=== PATIENT | male | born 1980 | race Two or more races ===

== ENCOUNTER 2019-04-30 11:35 | Inpatient (IN) | payer MEDICARE ==
[~2019-04-30] VITALS: Ht 180.3 cm; Wt 97.5 kg
[2019-04-30 12:11] LABS: BASOPHILS % (AUTO) 0.5 % (0.0-2.0); EOSINOPHILS % (AUTO) 1.6 % (1.0-6.0); HEMATOCRIT 45.2 % (41-53); HEMOGLOBIN 15.2 g/dL (13.5-17.5); LYMPHOCYTES # (AUTO) 2.1 K/uL (1.0-4.8); LYMPHOCYTES % (AUTO) 32.9 % (22.0-44.0); MEAN CORPUSCULAR HEMOGLOBIN 28.8 pg (26.0-34.0); MEAN CORPUSCULAR HGB CONC 33.7 G/dL (31.0-37.0); MEAN CORPUSCULAR VOLUME 85 fL (80-100); MONOCYTES # (AUTO) 0.4 K/uL (0.1-1.0); MONOCYTES % (AUTO) 5.7 % (2.0-9.0); NEUTROPHILS # (AUTO) 3.8 K/uL (1.8-7.7); NEUTROPHILS % (AUTO) 59.3 % (40.0-70.0); PLATELET COUNT (AUTO) 200 K/uL (150-450); RED BLOOD CELL COUNT(AUTO) 5.29 MIL/uL (4.50-5.90); RED CELL DISTRIBUTION WIDTH 13.1 % (11.5-14.5)
[2019-04-30 12:20] LABS: ANION GAP 10 mmol/L (8-16); CARBON DIOXIDE 26 mmol/L (22-29); CHLORIDE 98 mmol/L (98-107); CREATININE 0.94 mg/dL (0.60-1.30); GLOMERULAR FILTR. RATE CALC > 60 mL/min (>60); GLUCOSE,RANDOM 312 mg/dL (70-110); POTASSIUM 4.2 mmol/L (3.5-5.1); SODIUM SERUM 134 mmol/L (136-145); UREA NITROGEN, BLOOD 14 mg/dL (7-18)
[2019-04-30 12:26] LABS: ALANINE AMINOTRANSFERASE 52 U/L (12-78); ALBUMIN 3.8 g/dL (3.4-5.0); ALKALINE PHOSPHATASE 100 U/L (46-116); ASPARTATE AMINOTRANSFERASE 28 U/L (15-37); BILIRUBIN,TOTAL 0.8 mg/dL (0.1-1.0); TOTAL PROTEIN, SERUM 8.1 g/dL (6.4-8.2)
[2019-04-30 12:39] LABS: GLUCOSE,POINT OF CARE 341 MG/DL (70-110)
[2019-04-30] MEDS ORDERED: METF-960 PO (13:06)
[2019-04-30] MEDS ORDERED: BICT1TAB PO (13:06)
[2019-04-30] MEDS ORDERED: AMIT10TA6 PO (13:06)
[2019-04-30] MEDS ORDERED: SITA25 PO (13:06)
[2019-04-30] MEDS ORDERED: INSLAN SQ (13:06)
[2019-04-30] MEDS ORDERED: KETOROLAC TROMETHAMINE 30 MG/ML VIAL IM ONE (13:30)
[2019-04-30] MEDS ORDERED: ACETAMINOPHEN 500 MG TABLET PO ONE (13:30)
[2019-04-30 16:14] LABS: GLUCOSE,POINT OF CARE 241 MG/DL (70-110)
[2019-04-30 18:59] LABS: GLUCOSE,POINT OF CARE 292 MG/DL (70-110)
[2019-04-30] MEDS ORDERED: LORazepam 2 MG TABLET PO PRN (21:45)
[2019-04-30] MEDS ORDERED: HALOPERIDOL 5 MG TABLET PO PRN (21:45)
[2019-05-01 00:31] VITALS: BP 126/80
[2019-05-01] MEDS: ZOLPIDEM TARTRATE 10 MG TABLET PO PRN (00:43)
[2019-05-01] MEDS ORDERED: PNEUMOCOCCAL VACCINE POLYVALENT 0.5 ML VIAL [PPSV23] IM ONE (01:00)
[2019-05-01 01:24] LABS: GLUCOMETER DEV NAME(LOC) BV2S.; GLUCOSE,POINT OF CARE 256 MG/DL (70-110)
[2019-05-01 07:16] LABS: CHOL/HDL RATIO 4.4 (4.2-7.3)
[2019-05-01] MEDS ORDERED: CloNIDine HCL 0.1 MG TABLET PO PRN (10:30)
[2019-05-01] MEDS ORDERED: LOPERAMIDE HCL 2 MG CAPSULE PO PRN (10:30)
[2019-05-01] MEDS ORDERED: ALBUTEROL SULFATE HFA 90 MCG/PUFF 8 GM INHALER IH PRN (10:30)
[2019-05-01] MEDS ORDERED: MAG HYDROX/AL HYDROX/SIMETH ES 30 ML SUSPENSION UDCUP PO PRN (10:30)
[2019-05-01] MEDS ORDERED: BENZOCAINE/MENTHOL LOZENGE MM PRN (10:30)
[2019-05-01] MEDS ORDERED: ACETAMINOPHEN 325 MG TABLET PO PRN (10:30)
[2019-05-01] MEDS ORDERED: BACITRACIN 28.4 GM OINTMENT TP PRN (10:30)
[2019-05-01] MEDS ORDERED: PETROLATUM,WHITE 28 GM JELLY TP PRN (10:30)
[2019-05-01] MEDS ORDERED: MAGNESIUM HYDROXIDE SUSPENSION 30 ML UDCUP PO PRN (10:30)
[2019-05-01] MEDS ORDERED: GLUCAGON,HUMAN RECOMBINANT 1 MG VIAL IM PRN (10:30)
[2019-05-01 11:27] VITALS: BP 131/71
[2019-05-01] MEDS: ESCITALOPRAM OXALATE 10 MG TABLET PO SCH (11:48)
[2019-05-01] MEDS: INSULIN LISPRO 100 UNITS/ML SQ PRN ×2 (16:25→20:51)
[2019-05-01 16:27] VITALS: BP 120/68
[2019-05-01 16:30] LABS: GLUCOMETER DEV NAME(LOC) BV2S.; GLUCOSE,POINT OF CARE 207 MG/DL (70-110)
[2019-05-01] MEDS: INSULIN GLARGINE,HUM.REC.ANLOG 100 UNITS/ML SQ SCH (20:50)
[2019-05-01 20:53] LABS: GLUCOMETER DEV NAME(LOC) BV2S.; GLUCOSE,POINT OF CARE 235 MG/DL (70-110)
[2019-05-02 06:07] VITALS: BP 118/70
[2019-05-02 06:19] LABS: GLUCOMETER DEV NAME(LOC) BV2S.; GLUCOSE,POINT OF CARE 211 MG/DL (70-110)
[2019-05-02] MEDS: MetFORMIN HCL 500 MG TABLET PO SCH (06:49)
[2019-05-02] MEDS: INSULIN LISPRO 100 UNITS/ML SQ PRN ×4 (06:50→20:40)
[2019-05-02 08:14] VITALS: BP 132/84
[2019-05-02] MEDS: BIKTARVY PO SCH (08:40)
[2019-05-02] MEDS: DOCUSATE SODIUM 100 MG CAPSULE PO SCH (08:40)
[2019-05-02] MEDS: SitaGLIPtin PHOSPHATE 25 MG TABLET PO SCH (08:40)
[2019-05-02] MEDS: OMEPRAZOLE 20 MG CAPSULE PO SCH (08:40)
[2019-05-02] MEDS: ESCITALOPRAM OXALATE 10 MG TABLET PO SCH (08:40)
[2019-05-02] MEDS ORDERED: *PATIENT'S OWN MED [ENTER DRUG, DOSE, FREQUENCY IN COMMENTS] CLINICAL SCH (09:00)
[2019-05-02 11:29] LABS: GLUCOMETER DEV NAME(LOC) BV2S.; GLUCOSE,POINT OF CARE 195 MG/DL (70-110)
[2019-05-02 16:08] VITALS: BP 125/73
[2019-05-02 16:24] LABS: GLUCOMETER DEV NAME(LOC) BV2S.; GLUCOSE,POINT OF CARE 160 MG/DL (70-110)
[2019-05-02 20:39] LABS: GLUCOMETER DEV NAME(LOC) BV2S.; GLUCOSE,POINT OF CARE 180 MG/DL (70-110)
[2019-05-02] MEDS: INSULIN GLARGINE,HUM.REC.ANLOG 100 UNITS/ML SQ SCH (20:41)
[2019-05-03] MEDS: INSULIN LISPRO 100 UNITS/ML SQ PRN ×4 (06:22→20:37)
[2019-05-03 06:24] LABS: GLUCOMETER DEV NAME(LOC) BV2S.; GLUCOSE,POINT OF CARE 149 MG/DL (70-110)
[2019-05-03 06:38] VITALS: BP 120/81
[2019-05-03] MEDS: MetFORMIN HCL 500 MG TABLET PO SCH (06:50)
[2019-05-03 08:07] VITALS: BP 132/86
[2019-05-03] MEDS: OMEPRAZOLE 20 MG CAPSULE PO SCH (09:11)
[2019-05-03] MEDS: DOCUSATE SODIUM 100 MG CAPSULE PO SCH (09:11)
[2019-05-03] MEDS: ESCITALOPRAM OXALATE 10 MG TABLET PO SCH (09:11)
[2019-05-03] MEDS: SitaGLIPtin PHOSPHATE 25 MG TABLET PO SCH (09:12)
[2019-05-03] MEDS: BIKTARVY PO SCH (09:13)
[2019-05-03 09:25] LABS: GLUCOMETER DEV NAME(LOC) BV2S.; GLUCOSE,POINT OF CARE 190 MG/DL (70-110)
[2019-05-03 15:49] LABS: GLUCOMETER DEV NAME(LOC) BV2S.; GLUCOSE,POINT OF CARE 193 MG/DL (70-110)
[2019-05-03 16:25] VITALS: BP 130/71
[2019-05-03 20:34] LABS: GLUCOMETER DEV NAME(LOC) BV2S.; GLUCOSE,POINT OF CARE 228 MG/DL (70-110)
[2019-05-03] MEDS: INSULIN GLARGINE,HUM.REC.ANLOG 100 UNITS/ML SQ SCH (20:38)
[2019-05-04 01:32] VITALS: BP 121/68
[2019-05-04 06:19] LABS: GLUCOMETER DEV NAME(LOC) BV2S.; GLUCOSE,POINT OF CARE 142 MG/DL (70-110)
[2019-05-04] MEDS: MetFORMIN HCL 500 MG TABLET PO SCH (06:40)
[2019-05-04] MEDS: INSULIN LISPRO 100 UNITS/ML SQ PRN ×3 (06:42→20:10)
[2019-05-04] MEDS: OMEPRAZOLE 20 MG CAPSULE PO SCH (08:29)
[2019-05-04] MEDS: ESCITALOPRAM OXALATE 10 MG TABLET PO SCH (08:29)
[2019-05-04] MEDS: SitaGLIPtin PHOSPHATE 25 MG TABLET PO SCH (08:29)
[2019-05-04] MEDS: DOCUSATE SODIUM 100 MG CAPSULE PO SCH (08:29)
[2019-05-04] MEDS: BIKTARVY PO SCH (08:30)
[2019-05-04 10:59] LABS: GLUCOMETER DEV NAME(LOC) BV2S.; GLUCOSE,POINT OF CARE 135 MG/DL (70-110)
[2019-05-04 16:16] VITALS: BP 124/68
[2019-05-04 16:45] LABS: GLUCOMETER DEV NAME(LOC) BV2S.; GLUCOSE,POINT OF CARE 157 MG/DL (70-110)
[2019-05-04] MEDS: IBUPROFEN 600 MG TABLET PO PRN (17:24)
[2019-05-04] MEDS: INSULIN GLARGINE,HUM.REC.ANLOG 100 UNITS/ML SQ SCH (20:11)
[2019-05-04 20:19] LABS: GLUCOMETER DEV NAME(LOC) BV2S.; GLUCOSE,POINT OF CARE 183 MG/DL (70-110)
[2019-05-05 06:20] VITALS: BP 130/88
[2019-05-05 06:25] LABS: GLUCOMETER DEV NAME(LOC) BV2S.; GLUCOSE,POINT OF CARE 197 MG/DL (70-110)
[2019-05-05] MEDS: MetFORMIN HCL 500 MG TABLET PO SCH (06:31)
[2019-05-05] MEDS: INSULIN LISPRO 100 UNITS/ML SQ PRN ×3 (06:34→20:08)
[2019-05-05 08:10] VITALS: BP 120/75
[2019-05-05] MEDS: OMEPRAZOLE 20 MG CAPSULE PO SCH (08:23)
[2019-05-05] MEDS: SitaGLIPtin PHOSPHATE 25 MG TABLET PO SCH (08:23)
[2019-05-05] MEDS: ESCITALOPRAM OXALATE 10 MG TABLET PO SCH (08:23)
[2019-05-05] MEDS: DOCUSATE SODIUM 100 MG CAPSULE PO SCH (08:23)
[2019-05-05] MEDS: BIKTARVY PO SCH (08:24)
[2019-05-05 08:31] LABS: HEMATOCRIT 43.6 % (41-53); HEMOGLOBIN 14.6 g/dL (13.5-17.5); MEAN CORPUSCULAR HEMOGLOBIN 28.7 pg (26.0-34.0); MEAN CORPUSCULAR HGB CONC 33.6 G/dL (31.0-37.0); MEAN CORPUSCULAR VOLUME 85 fL (80-100); PLATELET COUNT (AUTO) 186 K/uL (150-450); RED BLOOD CELL COUNT(AUTO) 5.11 MIL/uL (4.50-5.90)
[2019-05-05 08:39] LABS: ANION GAP 5 mmol/L (8-16); CALCIUM, TOTAL 8.9 mg/dL (8.8-10.5); CARBON DIOXIDE 30 mmol/L (22-29); CHLORIDE 101 mmol/L (98-107); CREATININE 0.88 mg/dL (0.60-1.30); GLOMERULAR FILTR. RATE CALC > 60 mL/min (>60); GLUCOSE,RANDOM 169 mg/dL (70-110); POTASSIUM 4.4 mmol/L (3.5-5.1); SODIUM SERUM 136 mmol/L (136-145); UREA NITROGEN, BLOOD 15 mg/dL (7-18)
[2019-05-05 09:21] LABS: HEMOGLOBIN A1C 8.2 % (4.5-6.2)
[2019-05-05 09:28] LABS: BAND NEUTROPHILS % (MANUAL) 2 % (0-5); LYMPHOCYTES % (MANUAL) 28 % (22-44); MONOCYTES % (MANUAL) 5 % (2-9); PROMYELOCYTES % 4 (0-0); SEGMENTED NEUTROPHILS % 61 % (40-70)
[2019-05-05] MEDS: ONDANSETRON HCL 4 MG TABLET PO PRN (15:01)
[2019-05-05 16:06] VITALS: BP 109/70
[2019-05-05 16:39] LABS: GLUCOMETER DEV NAME(LOC) BV2S.; GLUCOSE,POINT OF CARE 139 MG/DL (70-110)
[2019-05-05] MEDS ORDERED: SUMAtriptan SUCCINATE 25 MG TABLET PO ONE (19:15)
[2019-05-05] MEDS: INSULIN GLARGINE,HUM.REC.ANLOG 100 UNITS/ML SQ SCH (20:08)
[2019-05-05 20:44] LABS: GLUCOMETER DEV NAME(LOC) BV2S.; GLUCOSE,POINT OF CARE 216 MG/DL (70-110)
[2019-05-05] MEDS: ZOLPIDEM TARTRATE 10 MG TABLET PO PRN (21:30)
[2019-05-06] MEDS: ONDANSETRON HCL 4 MG TABLET PO PRN (05:41)
[2019-05-06 06:10] LABS: GLUCOMETER DEV NAME(LOC) BV2S.; GLUCOSE,POINT OF CARE 113 MG/DL (70-110)
[2019-05-06 06:22] VITALS: BP 122/77
[2019-05-06] MEDS: MetFORMIN HCL 500 MG TABLET PO SCH (06:42)
[2019-05-06 08:04] VITALS: BP 120/77
[2019-05-06] MEDS: ESCITALOPRAM OXALATE 10 MG TABLET PO SCH (08:11)
[2019-05-06] MEDS: OMEPRAZOLE 20 MG CAPSULE PO SCH (08:11)
[2019-05-06] MEDS: SitaGLIPtin PHOSPHATE 25 MG TABLET PO SCH (08:11)
[2019-05-06] MEDS: DOCUSATE SODIUM 100 MG CAPSULE PO SCH (08:11)
[2019-05-06] MEDS: BIKTARVY PO SCH (08:11)
[2019-05-06 10:59] LABS: GLUCOMETER DEV NAME(LOC) BV2S.; GLUCOSE,POINT OF CARE 108 MG/DL (70-110)
[2019-05-06 16:39] LABS: GLUCOMETER DEV NAME(LOC) BV2S.; GLUCOSE,POINT OF CARE 115 MG/DL (70-110)
[2019-05-06 17:51] VITALS: BP 135/83
[2019-05-06] MEDS: INSULIN GLARGINE,HUM.REC.ANLOG 100 UNITS/ML SQ SCH (20:07)
[2019-05-06] MEDS: INSULIN LISPRO 100 UNITS/ML SQ PRN (20:08)
[2019-05-06 20:35] VITALS: BP 128/78
[2019-05-06] MEDS: IBUPROFEN 600 MG TABLET PO PRN (20:35)
[2019-05-06] MEDS: ZOLPIDEM TARTRATE 10 MG TABLET PO PRN (20:35)
[2019-05-06 20:59] LABS: GLUCOMETER DEV NAME(LOC) BV2S.; GLUCOSE,POINT OF CARE 150 MG/DL (70-110)
[2019-05-07 00:15] VITALS: BP 128/72
[2019-05-07 06:14] LABS: GLUCOMETER DEV NAME(LOC) BV2S.; GLUCOSE,POINT OF CARE 152 MG/DL (70-110)
[2019-05-07] MEDS: MetFORMIN HCL 500 MG TABLET PO SCH (06:14)
[2019-05-07] MEDS: INSULIN LISPRO 100 UNITS/ML SQ PRN ×2 (06:37→16:43)
[2019-05-07] MEDS: SitaGLIPtin PHOSPHATE 25 MG TABLET PO SCH (08:06)
[2019-05-07] MEDS: DOCUSATE SODIUM 100 MG CAPSULE PO SCH (08:06)
[2019-05-07] MEDS: BIKTARVY PO SCH (08:07)
[2019-05-07] MEDS: OMEPRAZOLE 20 MG CAPSULE PO SCH (08:07)
[2019-05-07] MEDS: ESCITALOPRAM OXALATE 10 MG TABLET PO SCH (08:07)
[2019-05-07 08:15] VITALS: BP 120/79
[2019-05-07] MEDS: IBUPROFEN 600 MG TABLET PO PRN (09:50)
[2019-05-07 11:14] LABS: GLUCOMETER DEV NAME(LOC) BV2S.; GLUCOSE,POINT OF CARE 119 MG/DL (70-110)
[2019-05-07] MEDS ORDERED: ESCI10TA54 PO (11:17)
[2019-05-07 16:09] VITALS: BP 122/70
[2019-05-07 17:20] LABS: GLUCOMETER DEV NAME(LOC) BV2S.; GLUCOSE,POINT OF CARE 141 MG/DL (70-110)
== END 2019-05-07 22:28 | disposition home or self-care (01) | DRG 885 ==
LOC: EMS 11:38 → EDBD 22:00 → B2S 22:00
PROVIDERS: ADMIT Psychiatry & Neurology Child & Adolescent Psychiatry; ATTEND Psychiatry & Neurology Child & Adolescent Psychiatry
PROC: 3E0234Z Introduction of Serum, Toxoid and Vaccine into Muscle, Percutaneous Approach (ICD-10-PCS; principal; 2019-05-01)
DX: F33.2 Major depressive disorder, recurrent severe without psychotic features (principal); R45.851 Suicidal ideations; F41.9 Anxiety disorder, unspecified; E11.9 Type 2 diabetes mellitus without complications; I10 Essential (primary) hypertension; G89.4 Chronic pain syndrome; F15.10 Other stimulant abuse, uncomplicated; F11.10 Opioid abuse, uncomplicated; F63.81 Intermittent explosive disorder; F17.200 Nicotine dependence, unspecified, uncomplicated; Z59.0 Homelessness; Z56.0 Unemployment, unspecified; Z23 Encounter for immunization; Z79.899 Other long term (current) drug therapy; Z79.4 Long term (current) use of insulin; Z91.013 Allergy to seafood
CPT/HCPCS: 83036; 83735; 84100; 85007; 90732; G0480; J1815; J1885; Q0162